=== PATIENT | male | born 1970 | race Hispanic/Latino ===

== ENCOUNTER 2022-04-04 18:06 | Emergency (ER) | payer OTHER, BC ==
[2022-04-04] MEDS ORDERED: Ibuprofen 800 MG TAB ONE (20:36)
== END 2022-04-04 20:45 | disposition home or self-care (01) ==
LOC: NAV ERS 18:06
DX: S13.9XXA Sprain of joints and ligaments of unspecified parts of neck, initial encounter (principal); S00.93XA Contusion of unspecified part of head, initial encounter; F17.210 Nicotine dependence, cigarettes, uncomplicated; W20.8XXA Other cause of strike by thrown, projected or falling object, initial encounter
CPT/HCPCS: 70450; 72125

== ENCOUNTER 2023-02-08 08:52 | Emergency (ER) | payer OTHER ==
[2023-02-08] MEDS ORDERED: Ibuprofen 800 MG TAB ONE (09:31)
== END 2023-02-08 09:57 | disposition home or self-care (01) ==
LOC: NAV ERS 08:52
DX: S59.902A Unspecified injury of left elbow, initial encounter (principal); S79.912A Unspecified injury of left hip, initial encounter; S89.92XA Unspecified injury of left lower leg, initial encounter; S69.92XA Unspecified injury of left wrist, hand and finger(s), initial encounter; F17.210 Nicotine dependence, cigarettes, uncomplicated; W17.89XA Other fall from one level to another, initial encounter; Y93.89 Activity, other specified; Y92.69 Other specified industrial and construction area as the place of occurrence of the external cause

== ENCOUNTER 2025-01-26 08:48 | Emergency (ER) | payer BC, OTHER ==
[2025-01-26] MEDS ORDERED: Naproxen 500 MG TAB ONE (09:23)
== END 2025-01-26 10:45 | disposition home or self-care (01) ==
LOC: NAV ERS 08:48
DX: S32.028A Other fracture of second lumbar vertebra, initial encounter for closed fracture (principal); S32.038A Other fracture of third lumbar vertebra, initial encounter for closed fracture; M51.369 Other intervertebral disc degeneration, lumbar region without mention of lumbar back pain or lower extremity pain; M48.061 Spinal stenosis, lumbar region without neurogenic claudication; E03.0 Congenital hypothyroidism with diffuse goiter; M17.12 Unilateral primary osteoarthritis, left knee; M85.80 Other specified disorders of bone density and structure, unspecified site; F17.210 Nicotine dependence, cigarettes, uncomplicated; W11.XXXA Fall on and from ladder, initial encounter
CPT/HCPCS: 72131